=== PATIENT | male | born 1965 | race Caucasian/White ===

== ENCOUNTER 2016-12-17 17:10 | Emergency (ER) | payer OTHER ==
[~2016-12-17] VITALS: Ht 190.5 cm; Wt 99.8 kg
--- NOTE | ~2016-12-17 | EKG ---
[address] [employer] [place] [address] ELECTROCARDIOGRAM REPORT Name: MARGUERITEANNE Room [facility]: [facility] [id number] Admission: 12/17/16 Attend Phys: Discharge: 12/17/16 Date of : 69 Report #: [id number] THIS REPORT FOR: //name// [facility] ED Test Date: 2016-12-17 Test Time: 17:28:26 Pat Name: ANNE EVERETT Department: Room: Gender: M Substance Abuse Rn: SERENA : 1965 Requested By: Celi Wallace Order Number: [id number] MD: Bethel Nagel Measurements Intervals [place] Rate: 65 P: 49 [place]: 168 QRS: 45 QRSD: 103 T: 63 QT: 454 QTc: 473 Interpretive Statements Sinus rhythm Nonspecific T wave abnormality No previous ECG available for comparison Electronically Signed On 12-18-2016 7:52:43 CDT by Bethel Nagel [email or web address] <ELECTRONICALLY SIGNED> By: Bethel Nagel MD, [facility] 12/18/16 0752 [id number] 1728 Bethel Nagel MD, FACC /EPI
[~2016-12-17 17:10] MED LIST: ALLOPURINOL 30300 M1 PO; ALLOPURINOL5 GM; BENICAR HCT 401 EACH PO; BENICAR20 MG; IBUPROFEN 800800 M1 PO; IBUPROFEN 800800 MG PO; INDOMETHACIN 2525 MG PO; INDOMETHACIN 5050 M1 PO; LEXAPRO 10 MG T10 M1 PER TUBE; MULTIVITAMINS1 EAC7 PO; NOHOMEMEDICATIONS; NORCO 5-325 TA1 EACH PO; PENICILLIN VK250 MG PO; PREDNISONE 20 M20 M1 PO; PREDNISONE50 MG PO; ROBAXIN500 MG PO; SENOKOT-S1 TA1 PO; TRIBENZOR 40-51 EACH PO; ZYRTEC10 M2 PO
[2016-12-17 17:11] VITALS: BP 172/116
[2016-12-17] MEDS ORDERED: NAPROSYN500 MG PO (17:41)
[2016-12-17] MEDS ORDERED: AMOXICILLIN 50500 MG PO (17:41)
[2016-12-17] MEDS ORDERED: TRAMADOL 50 MG50 MG PO (17:41)
[2016-12-17] MEDS ORDERED: BENICAR HCT 401 EAC1 PO (18:03)
[2016-12-17] MEDS ORDERED: WELLBUTRIN XL150 MG PO (18:04)
[2016-12-17] MEDS ORDERED: HYDROXYZINE HCL25 M2 PO (18:04)
[2016-12-17] MEDS ORDERED: LAMOTRIGINE200 MG PO (18:05)
== END 2016-12-17 18:06 | disposition home or self-care (01) ==
LOC: ER 17:10
DX: K08.89 Other specified disorders of teeth and supporting structures (principal); M26.623 Arthralgia of bilateral temporomandibular joint; I10 Essential (primary) hypertension; M10.9 Gout, unspecified; Z90.49 Acquired absence of other specified parts of digestive tract; Z88.8 Allergy status to other drugs, medicaments and biological substances